=== PATIENT | female | born 1965 | race African-American/Black ===

== ENCOUNTER 2016-10-06 09:26 | Emergency (ER) | payer MEDICAID ==
[~2016-10-06] VITALS: Ht 177.8 cm; Wt 59.0 kg
[~2016-10-06 09:26] MED LIST: CLON0.1T PO; FLUO40CA49 PO; LEVO112T5 PO; METF500T4 PO; SPIR25TA4 PO
--- NOTE | 2016-10-06 09:30 | NUR ---
AAOX3, CAME TO ER C/O R ANKLE PAIN AND SWELLING SINCE 1AM TODAY, "I FELL ON A HOLE". RESP IS EVEN AND UNLABORED WITH NAD NOTED. SKIN IS WARM AND DRY. AWAITING MD FOR EVAL.
[2016-10-06] MEDS ORDERED: diphenhydrAMINE HCL 25 MG CAPSULE PO ONE (11:00)
[2016-10-06] MEDS ORDERED: IBUPROFEN 600 MG TABLET PO ONE ×2 (11:00→11:15)
[2016-10-06] MEDS ORDERED: diphenhydrAMINE HCL 25 MG CAPSULE ONE (11:15)
--- NOTE | 2016-10-06 11:27 | NUR ---
splint applied. Patient discharged to home in stable condition. Written and verbal after care instructions given. Patient verbalizes understanding of instruction.Crutches dispensed. Pt instructed on proper use of crutches. Patient able to demonstrate correct use of crutches.
[2016-10-06 11:29] VITALS: BP 124/76
== END 2016-10-06 11:30 | disposition home or self-care (01) ==
LOC: EDUNIT# 09:26 → ER 09:56
DX: S82.831A Other fracture of upper and lower end of right fibula, initial encounter for closed fracture (principal); E11.9 Type 2 diabetes mellitus without complications; W18.39XA Other fall on same level, initial encounter; Y93.89 Activity, other specified; Y92.89 Other specified places as the place of occurrence of the external cause; Y99.9 Unspecified external cause status
CPT/HCPCS: 73610-TC; A4606; Q0163; Z7610

== ENCOUNTER 2016-10-09 21:33 | Emergency (ER) | payer MEDICAID ==
--- NOTE | 2016-10-09 21:35 | NUR ---
PT STATES "I TALKED TO THE ARCHITECTURAL DRAFTSMAN AND SHE TOLD ME I NEED TO COME BACK HERE FOR A REHAB PROGRAM SINCE I AM HOMELESS". PT INFORMED WE HAVE NO REHAB PROGRAM HERE BUT WE OFFER REFERRALS. PT STATES "NO, I HAVE TO BE IN THIS HOSPITAL FOR THIS KIND OF PROGRAM AND SEE A ARCHITECTURAL DRAFTSMAN".
--- NOTE | 2016-10-09 23:35 | NUR ---
WAITING IN FOR DYNAMOMETER TESTER ENGINE IN THE MORNING.
== END 2016-10-09 23:35 | disposition left against medical advice (07) ==
LOC: ER 21:40
DX: Z53.21 Procedure and treatment not carried out due to patient leaving prior to being seen by health care provider (principal)

== ENCOUNTER 2016-10-11 11:13 | Emergency (ER) | payer MEDICAID ==
[~2016-10-11] VITALS: Ht 177.8 cm; Wt 59.0 kg
[2016-10-11 11:46] VITALS: BP 147/84
--- NOTE | 2016-10-11 12:23 | NUR ---
[employer] CALLED FOR CONSULT
--- NOTE | 2016-10-11 14:58 | NUR ---
[facility] --- CALLED TRANSPORT ETA 45 MIN. PER RODRIGUEZ
== END 2016-10-11 16:37 | disposition home or self-care (01) ==
LOC: EDUNIT# 11:13 → ER 11:19
DX: Z00.8 Encounter for other general examination (principal); Z59.0 Homelessness; E11.9 Type 2 diabetes mellitus without complications
CPT/HCPCS: A4606; Z7610

== ENCOUNTER 2019-04-05 17:13 | Emergency (ER) | payer MEDICAID ==
[~2019-04-05] VITALS: Ht 177.8 cm; Wt 65.8 kg
[~2019-04-05 17:13] MED LIST changes: +METF-440 PO; -METF500T4 PO; -SPIR25TA4 PO; +SPIR25TA6 PO
[2019-04-05 17:15] VITALS: BP 128/70
--- NOTE | 2019-04-05 17:20 | NUR ---
MEDICALLY CLEARED BY [facility]. D/C TO PD OFFICER IN STABLE CONDITION.
== END 2019-04-05 17:22 ==
LOC: ER 17:19
DX: Z02.89 Encounter for other administrative examinations (principal); E11.9 Type 2 diabetes mellitus without complications; Z79.899 Other long term (current) drug therapy; Z79.84 Long term (current) use of oral hypoglycemic drugs; Z59.0 Homelessness

== ENCOUNTER 2019-08-01 02:52 | Emergency (ER) | payer MEDICAID ==
[~2019-08-01] VITALS: Ht 177.8 cm; Wt 68.0 kg
--- NOTE | 2019-08-01 03:06 | NUR ---
PATIENT CAME TO ER BED 10 C/O OF "BUG BITE" SINCE YESTERDAY EVENING. PATIENT STATES THAT SHE WAS AT HOME WHEN SHE GOT BIT. REDNESS, SWELLING, ON THE RIGHT ELBOW WITH NO SIGNS OF BITE. PATIENT C/O OF ITCHINESS. AAOX4. NO SOB. BREATHING EVENLY AND UNLABORED ON ROOM AIR.
[2019-08-01] MEDS ORDERED: CEPHALEXIN MONOHYDRATE 500 MG CAPSULE PO ONE ×2 (03:27→03:30)
--- NOTE | 2019-08-01 03:46 | NUR ---
Patient discharged to home in stable condition. Written and verbal after care instructions given. Patient verbalizes understanding of instruction and RX. PT ambualted with steady gait.
[2019-08-01 03:47] VITALS: BP 131/79
== END 2019-08-01 03:47 | disposition home or self-care (01) ==
LOC: ER 03:04
DX: L03.113 Cellulitis of right upper limb (principal); E11.9 Type 2 diabetes mellitus without complications; Z79.899 Other long term (current) drug therapy; Z79.84 Long term (current) use of oral hypoglycemic drugs

== ENCOUNTER 2019-09-28 02:30 | Emergency (ER) | payer MEDICAID ==
[~2019-09-28] VITALS: Ht 175.3 cm; Wt 68.0 kg
[2019-09-28 02:36] VITALS: BP 132/73
--- NOTE | 2019-09-28 02:37 | NUR ---
BIBSELF C/O ITCHING ALL OVER FOR A COUPLE WEEKS. PT STATED SHE FOUND SOMETHING IN HER HAIR WHICH SHE DOES NOT KNOW WHAT IT IS. NO ACUTE DISTRESS NOTED. PLACED IN GOWN, AWAITING MD FOR EVAL.
[2019-09-28] MEDS ORDERED: diphenhydrAMINE HCL 50 MG/ML VIAL IM ONE (03:00)
[2019-09-28] MEDS ORDERED: diphenhydrAMINE HCL 50 MG/ML VIAL ONE (03:02)
== END 2019-09-28 03:10 | disposition home or self-care (01) ==
LOC: ER 02:31
DX: B85.2 Pediculosis, unspecified (principal); E11.9 Type 2 diabetes mellitus without complications; Z79.899 Other long term (current) drug therapy
CPT/HCPCS: 96372; 99283; J1200